=== PATIENT | male | born 1970 | race Caucasian/White ===

== ENCOUNTER 2017-02-01 02:39 | Inpatient (IN) | payer BC ==
[~2017-02-01] VITALS: Ht 188 cm; Wt 111.3 kg
[2017-02-01] VITALS (8 sets, daily range): BP systolic 110–148; BP diastolic 68–98
[~2017-02-01 02:39] MED LIST: BUSPAR15 MG PO; BUSPIRONE HCL15 MG PO; DIAZEPAM5 MG PO; HYDROCODON-ACE1 EAC7 PO; LAMICTAL150 M1 PO; OXYCODONE; OXYCODONE HCL5 MG PO; VALIUM; VANCOMYCIN HCL1 GM IV; VANCOMYCIN750 MG/151 IV; XANAX0.5 MG PO
[2017-02-01 04:19] LABS: EOSINOPHIL (%) 0.8 % (0-5); EOSINOPHIL COUNT 0.1 K/uL (0-0.3); HEMATOCRIT 42.4 % (38.0-50.0); IMMATURE GRANULOCYTE (%) 0.7 % (0.0-0.7); IMMATURE GRANULOCYTE COUNT 0.1 K/uL; INSTRUMENT ABS NEUTROPHIL CT 10.1 K/uL; LYMPHOCYTE COUNT 1.8 K/uL (1.0-2.8); MCH 29.5 PG (29.0-34.0); MCV 86.9 FL (86-99); MEAN PLAT.VOLUME 9.5 uM^3 (9.0-12.4); MONOCYTE (%) 10.1 % (3-12); MONOCYTE COUNT 1.4 K/uL (0-0.8); NEUTROPHIL (%) 74.5 % (45-76); NEUTROPHIL COUNT 10.1 K/uL (1.8-6.4); PLATELET COUNT 249 K/uL (156-360); RBC DIS.WIDTH-CV 12.6 % (11.8-14.6); RED BLOOD COUNT 4.88 M/uL (4.00-5.50); WHITE BLOOD COUNT 13.5 K/uL (4.1-10.2)
[2017-02-01 04:45] LABS: CHLORIDE 108 mEq/L (99-109); POTASSIUM 4.1 mEq/L (3.7-5.4); SODIUM 142 mEq/L (136-147)
[2017-02-01 04:47] LABS: GLUCOSE 126 mg/dL (70-99)
[2017-02-01 04:48] LABS: ANION GAP 13 MEQ/L (2-14)
[2017-02-01 04:51] LABS: GFR ESTIMATE (CALCULATED) > 59 mL/min/; UREA NITROGEN (BUN) 8 mg/dL (9-23)
[2017-02-01 12:38] LABS: INFLUENZA A VIRAL ANTIGEN NEGATIVE; INFLUENZA B VIRAL ANTIGEN NEGATIVE
[2017-02-01] MEDS ORDERED: ADVIL200 MG PO (17:44)
[2017-02-02] VITALS (7 sets, daily range): BP systolic 125–130; BP diastolic 69–86
[2017-02-03 04:40] VITALS: BP 128/75
[2017-02-03 08:58] VITALS: BP 130/97
[2017-02-03 17:25] VITALS: BP 101/80
[2017-02-04] VITALS: BP 148/78
[2017-02-04 08:00] VITALS: BP 172/82
[2017-02-04] MEDS ORDERED: DICLOXACILLIN500 MG PO (15:43)
[2017-02-04 16:00] VITALS: BP 180/82
== END 2017-02-04 16:52 | disposition home or self-care (01) | DRG 603 ==
LOC: EME 02:39 → 4SOUTH 04:48 → EDOF 04:48 → 4SOUTH 10:30
PROVIDERS: Emergency Medicine; Surgery
DX: L03.116 Cellulitis of left lower limb (principal); L97.429 Non-pressure chronic ulcer of left heel and midfoot with unspecified severity; B95.61 Methicillin susceptible Staphylococcus aureus infection as the cause of diseases classified elsewhere; G62.9 Polyneuropathy, unspecified
CPT/HCPCS: 73630; 73720; 80048; 80202; 83605; 85025; 86140; 87040; 87070; 87075; 87077; 87147; 87186; 87205; 87502; 99281; 99285; J1650; J1885; J2405; J2543; J3370; J7030; J7050

== ENCOUNTER 2017-02-12 21:20 | Emergency (ER) | payer BC ==
[~2017-02-12] VITALS: Ht 190.5 cm; Wt 114.0 kg
[~2017-02-12 21:20] MED LIST changes: +ADVIL200 MG PO; +DICLOXACILLIN500 MG PO
[2017-02-12 22:41] LABS: HEMATOCRIT 41.6 % (38.0-50.0); MCH 29.6 PG (29.0-34.0); MCHC 33.9 G/DL (30.0-36.0); MCV 87.2 FL (86-99); MEAN PLAT.VOLUME 9.4 uM^3 (9.0-12.4); PLATELET COUNT 302 K/uL (156-360); RBC DIS.WIDTH-CV 12.5 % (11.8-14.6); RBC DIS.WIDTH-SD 39.9 % (39-53); RED BLOOD COUNT 4.77 M/uL (4.00-5.50); WHITE BLOOD COUNT 12.3 K/uL (4.1-10.2)
[2017-02-12 22:53] LABS: CHLORIDE 100 mEq/L (99-109); POTASSIUM 3.6 mEq/L (3.7-5.4); SODIUM 137 mEq/L (136-147)
[2017-02-12 22:54] LABS: GLUCOSE 104 mg/dL (70-99)
[2017-02-12 22:56] LABS: ANION GAP 11 MEQ/L (2-14)
[2017-02-12 22:58] LABS: GFR ESTIMATE (CALCULATED) > 59 mL/min/
[2017-02-12 22:59] LABS: UREA NITROGEN (BUN) 11 mg/dL (9-23)
[2017-02-13 00:09] VITALS: BP 135/86
== END 2017-02-13 00:11 | disposition home or self-care (01) ==
LOC: EME 21:20
PROVIDERS: Physician Assistant
DX: S91.312D Laceration without foreign body, left foot, subsequent encounter (principal); L03.116 Cellulitis of left lower limb; W25.XXXD Contact with sharp glass, subsequent encounter; Z86.14 Personal history of Methicillin resistant Staphylococcus aureus infection
CPT/HCPCS: 73630; 80048; 83605; 85027; 87040; 99281; 99285; J0696; J2405; J7030; J7050